=== PATIENT | male | born 1990 ===

== ENCOUNTER 2023-02-18 13:30 | Outpatient (AMB) | payer MEDICAID, SELFPAY ==
--- NOTE | 2023-02-18 13:32 | A.OFFVIS_ITS ---
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 Addison. He has a past medical history of chronic low back pain, depression, and GERD He presents to the office today for consultation of infertility. He reports over the last 2 years he has been attempting to have a child with his partner however has not been able to. He reports his has had infertility workup and noted to have increased FSH and is following up with a reproductive medicine doctor for this issue. He reports having had a left sided orchiectomy many years ago. However, it is unclear exactly why. He reports having had a orchiopexy for a undescended testicle at a young age however than discusses being told his testicle was too small and he was at high risk for testicular cancer therefore it was removed. He reports having this removed many years ago in [facility]. He discusses having followed up with a provider for this exact issue many years ago at which time recommendations were made for patient to take motility max by mouth however he reports having had no benefit with this medication and therefore he is here for consultation. He otherwise denies any bothersome urinary issues or concerns. He reports to be happy with current voiding parameters. Discussed at length potential causes for infertility. Discussed further workup with labs, scrotal ultrasound, and semen analysis. All questions were answered. [facility] Medical History (Updated 02/18/23 @ 14:08 by DILAN Hanson) Immune to varicella Chronic low back pain Dry skin Right testicular pain Current mild episode of major depressive disorder without prior episode GERD (gastroesophageal reflux disease) Surgical History (Updated 02/18/23 @ 14:03 by Esha Crenshaw) History of orchiectomy History of left inguinal hernia repair Review of Systems Eyes Reports no additional complaints ENT Reports no additional complaints Card Reports no additional complaints Resp Reports no additional complaints GI Reports as per HPI Reports as per HPI Musc Reports as per HPI Neuro Reports no additional complaints Psych Reports as per HPI Vincent/Lymph Reports no additional complaints Aller/Immun Reports no additional complaints Physical Exam Const General: cooperative, healthy appearing, comfortable, no acute distress, well developed, alert and awake Orientation/consciousness: patient oriented x3 Limitations: no limitations HEENT Head: Yes normal to inspection, Yes normocephalic and Yes atraumatic Ears: hearing grossly normal bilaterally Eyes General: appearance normal, both eyes and all related structures Neck Neck: Yes normal visual inspection and Yes trachea midline Chest Chest palpation & inspection: normal inspection of the chest Resp Effort & Inspection: normal respiratory effort and able to speak in complete sentences Cardio Rate: regular rate GI Inspection: Yes normal to inspection General: Yes no CVA tenderness Back/Spine/Pelvis Back: no CVA tenderness Skin General skin exam: no rashes or lesions noted Neuro General: patient oriented x3 Extrem General: Yes normal to inspection Psych Appearance: grossly normal and well kempt Mental Status: mental status grossly normal Speech and movement: Normal speech and movement present and Clear speech present Affect: normal affect Attitude: cooperative Thought process: Normal thought process present Thought content: Normal thought content present Insight: Fair insight present (Psych) Judgement: Fair judgement present (Psych) Results AMB Urinalysis, Automated UA Leukoctes 0 Diony/uL Last Edit by [employer] on 02/18/23 13:51 UA Nitrite Negative Last Edit by [employer] on 02/18/23 13:51 UA Urobilinogen 0.2 mg/dL Last Edit by [employer] on 02/18/23 13:51 UA Protein 15 mg/dL Last Edit by [employer] on 02/18/23 13:51 UA pH 6.0 Last Edit by [employer] on 02/18/23 13:51 UA Blood 0 Clint/uL Last Edit by [employer] F[employer] on 02/18/23 13:51 UA Specific [place]an 1.020 Last Edit by [employer] F[employer] on 02/18/23 13:51 UA Ketone Negative Last Edit by [employer] on 02/18/23 13:51 UA Bilirubin 0 mg/dL Last Edit by [employer] on 02/18/23 13:51 UA Glucose 0 mg/dL Last Edit by Esha Crenshaw on 02/18/23 13:51 Results Reviewed Results Reviewed: Laboratory Last Values Urine pH (Auto) 6.0 02/18/23 13:50 Specific Mac[place]arlan (Auto) 1.020 02/18/23 13:50 Urine Protein (Auto) 15 mg/dL 02/18/23 13:50 Glucose (UA)(Auto) 0 mg/dL 02/18/23 13:50 Urine Ketones (Auto) Negative 02/18/23 13:50 Urine Blood (Auto) 0 Clint/uL 02/18/23 13:50 Urine Nitrite (Auto) Negative 02/18/23 13:50 Urine Bilirubin (Auto) 0 mg/dL 02/18/23 13:50 Urine Urobilinogen (Auto) 0.2 mg/dL 02/18/23 13:50 Leukocyte Esterase (Auto) 0 Diony/uL 02/18/23 13:50 Assessment & Plan Assessment & Plan (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 Will obtain testosterone free and total, FSH, LH, prolactin, and estradiol for further assessment evaluation; discussed obtaining labs 2 hours upon wakening Start pentoxifylline and vitamin-E as discussed and prescribed. Discussed at length potential causes for infertility as well as further infertility workup Patient denies any bothersome urinary issues. He is happy with current voiding parameters. Will obtain scrotal ultrasound for further assessment evaluation. Discussed obtaining semen analysis through [facility] will await call back to schedule. Follow-up with Dr. Dupont in 6-8 weeks with imaging, labs, and semen analysis to be completed prior; or sooner with any issues, concerns, and or questions. 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 All questions were answered. Physical exam, labs, and imaging were discussed and reviewed in detail. As well as risks, benefits, and discussion of treatment choices. No major barriers to understanding were identified. The patient express ed understanding and agreement with the above treatment plan. The patient was made aware they should contact our office by phone for worsening of their current condition, the appearance of new symptoms, or with any questions or concerns. Compliance is encouraged with any medications and follow up testing that is ordered. It is a privilege to be allowed the opportunity to participate in? your urological care.? Again, if you have any questions or concerns If you have any questions or concerns please do not hesitate to contact me. The office is [phone]. This note is constructed using voice recognition software. While every effort has been made to ensure accuracy clinical data associate errors may have been included. 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
== END 2023-02-18 14:02 | disposition home or self-care (01) ==
PROVIDERS: PCP Nurse Practitioner; Visit Provider Nurse Practitioner Family
DX: Q55.0 Absence and aplasia of testis (principal); N46.11 Organic oligospermia; Z13.9 Encounter for screening, unspecified
CPT/HCPCS: 99204

== ENCOUNTER → 2023-02-18 13:30 | Outpatient (BNVA) | payer MEDICAID, SELFPAY | PROVIDERS: PCP Nurse Practitioner; Visit Provider Nurse Practitioner Family | DX: Q55.0 Absence and aplasia of testis (principal); N46.11 Organic oligospermia | CPT/HCPCS: 81003; 99212 ==

== ENCOUNTER 2023-02-20 09:56 | Outpatient (REF) | payer MEDICAID, SELFPAY ==
[2023-02-22 01:09] LABS: Follicle Stimulating Hormone 11.8 mIU/mL (1.4-12.8); Lutenizing Hormone 7.4 mIU/mL (1.5-9.3); Prolactin 6.6 ng/mL (2.0-18.0)
[2023-02-25 16:59] LABS: Testosterone, Total 368 ng/dL (250-1100)
[2023-03-08 15:10] LABS: Estradiol Ultra Sensitive 23
== END 2023-02-20 09:57 | disposition home or self-care (01) ==
LOC: HO.LAB 09:56
PROVIDERS: Visit Provider Nurse Practitioner Family
DX: N46.11 Organic oligospermia (principal)
CPT/HCPCS: 36415; 82670; 83001; 83002; 84146; 84402; 84403

== ENCOUNTER 2023-03-07 14:38 | Outpatient (REF) | payer MEDICAID, SELFPAY ==
--- NOTE | ~2023-03-07 | US_ITS ---
EXAMINATION: US SCROTUM CLINICAL INFORMATION: Organic oligospermia. Status post left orchiectomy many years ago, history of undescended testicle, status post orchiopexy. COMPARISON: None available. TECHNIQUE: A sonogram of the right glory-scrotum was performed assessing minor-scale appearance and color Doppler flow. Spectral Doppler analysis of the arterial and venous flow were performed in the right testes. FINDINGS: RIGHT: Right testicle measures 3.9 x 2.0 x 2.9 cm, volume 11.5 mL. No focal testicular parenchymal lesions are visualized. Spectral Doppler analysis of the arterial and venous flow is normal in the right testis. Right epididymal head is normal in size. No right hydrocele or varicocele is seen. Right epididymal Doppler flow is normal. LEFT: Surgically absent. US/US scrotum IMPRESSION: 1. Status post left orchiectomy. 2. Normal right testicle and epididymis.
== END 2023-03-07 14:39 | disposition home or self-care (01) ==
LOC: HO.US 14:38
PROVIDERS: PCP Nurse Practitioner; Visit Provider Nurse Practitioner Family
DX: N46.11 Organic oligospermia (principal); Q55.0 Absence and aplasia of testis
CPT/HCPCS: 76870

== ENCOUNTER 2023-04-16 14:07 | Outpatient (AMB) | payer MEDICAID, SELFPAY ==
--- NOTE | 2023-04-16 14:41 | A.OFFVIS_ITS ---
Intake Intake Visit Reasons: Labs/US(Set)Confirmed Intake Note: Patient is present for LABS/Semen analysis Allergies No Known Allergies Allergy (Verified 02/18/23 14:49) Medication List - Last Reconciled 04/16/23 by Jose Dupont MD pentoxifylline ER 400 mg PO BID 90 days vitamin E (dl, acetate) 450 mg PO DAILY 90 days HPI HPI Comments History of Present Illness Details Young is a pleasant [place] male. He is a patient of Dr. Addison. He is seen for the following urologic conditions - male infertility [place] refugee by way of [facility] - orchidopexy as child Fertility evaluation - partner currently undergoing evaluation Laboratory testing - T 400, FT 78, LH 7.4 Imaging - Scrotal US - right testicle normal Office Semen Analysis - adequate volume and movement on gross examination with HPF examination [facility] Medical History (Updated 02/18/23 @ 14:08 by FRANCESCA HansonP-) Immune to varicella Chronic low back pain Dry skin Right testicular pain Current mild episode of major depressive disorder without prior episode GERD (gastroesophageal reflux disease) Surgical History (Updated 02/18/23 @ 14:03 by Esha Crenshaw) History of orchiectomy History of left inguinal hernia repair Review of Systems Const Denies chills and Denies fever(s) Card Reports no additional complaints and Denies syncope Resp Denies cough GI Denies abdominal pain and Denies heartburn Reports as per HPI and Denies change in libido Neuro Denies syncope Psych Denies change in libido Endo Denies change in libido Physical Exam Const General: cooperative, healthy appearing, comfortable and no acute distress Orientation/consciousness: patient oriented x3 HEENT Face and sinus: Yes normal facial exam Mouth: moist mucous membranes Neck Neck: Yes normal visual inspection, Yes full ROM and Yes trachea midline Chest Chest palpation & inspection: normal inspection of the chest Resp Effort & Inspection: normal respiratory effort, able to speak in complete sentences and no respiratory distress GI Inspection: Yes normal to inspection Back/Spine/Pelvis Cervical Spine: normal cervical lordosis Thoracic/Lumbar Spine: thoracic and lumbar spine normal to inspection Skin General skin exam: no rashes or lesions noted Neuro General: patient oriented x3, gait normal, tone normal and moves all extremities Extrem General: Yes normal to inspection and Yes capillary refill normal Assessment & Plan Assessment & Plan (1) 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 follow-up Medications: Refilled pentoxifylline ER administer with meals 400 mg PO BID 90 days 180 tabs 1RF vitamin E (dl, acetate) 450 mg PO DAILY 90 days 90 caps 1RF N48.6 - Induration penis plastica Patient Instructions: Imaging studies, laboratory and physical exam results were discussed and reviewed in detail. No major barriers to patient understanding were identified. An opportunity to ask questions regarding the treatment plan was provided. All questions were answered. The patient expressed understanding and agreement with the above treatment plan. The patient is aware they should contact our office by phone for worsening of their current condition or the appearance of new urologic symptoms. Compliance is encouraged with any medications and followup testing that is ordered. It is a privilege to participate in the urologic care of your patient. If you have any questions or concerns regarding treatment for the above conditions, or other urologic issues, please do not hesitate to contact me. The office telephone contact is [phone]. This note is constructed using voice recognition software. While every effort landin s been made to ensure accuracy senior fire protection engineer errors may have been included. 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
== END 2023-04-16 15:11 | disposition home or self-care (01) ==
PROVIDERS: PCP Nurse Practitioner; Visit Provider Urology
DX: N46.11 Organic oligospermia (principal); Q55.0 Absence and aplasia of testis
CPT/HCPCS: 99213

== ENCOUNTER → 2023-04-16 14:07 | Outpatient (BNVA) | payer MEDICAID, SELFPAY | PROVIDERS: PCP Nurse Practitioner; Visit Provider Urology | DX: N46.11 Organic oligospermia (principal); Q55.0 Absence and aplasia of testis | CPT/HCPCS: 99212 ==

== ENCOUNTER 2023-11-19 13:44 | Outpatient (AMB) | payer MEDICAID, SELFPAY ==
--- NOTE | 2023-11-19 13:47 | A.OFFVIS_ITS ---
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 He is a patient of Dr. Addison. He is seen for the following urologic conditions - male infertility is back in [place] We will complete full infertility test Initial test in office had shown adequate sperm volume and gross movement evaluation [employer] [place] test will quantify sperm levels [place] refugee by way of [facility] - orchidopexy as child Fertility evaluation - partner currently undergoing evaluation Laboratory testing - T 400, FT 78, LH 7.4 Imaging - Scrotal US - right testicle normal [facility] Medical History Immune to varicella Chronic low back pain Dry skin Right testicular pain Current mild episode of major depressive disorder without prior episode GERD (gastroesophageal reflux disease) Surgical History History of orchiectomy History of left inguinal hernia repair Review of Systems Const Denies chills and Denies fever(s) Card Reports no additional complaints and Denies syncope Resp Denies cough GI Denies abdominal pain and Denies heartburn Reports as per HPI and Denies change in libido Neuro Denies syncope Psych Denies change in libido Endo Denies change in libido Physical Exam Const General: cooperative, healthy appearing, comfortable and no acute distress Orientation/consciousness: patient oriented x3 HEENT Face and sinus: Yes normal facial exam Mouth: moist mucous membranes Neck Neck: Yes normal visual inspection, Yes full ROM and Yes trachea midline Chest Chest palpation & inspection: normal inspection of the chest Resp Effort & Inspection: normal respiratory effort, able to speak in complete sentences and no respiratory distress GI Inspection: Yes normal to inspection Back/Spine/Pelvis Cervical Spine: normal cervical lordosis Thoracic/Lumbar Spine: thoracic and lumbar spine normal to inspection Skin General skin exam: no rashes or lesions noted Neuro General: patient oriented x3, gait normal, tone normal and moves all extremities Extrem General: Yes normal to inspection and Yes capillary refill normal Assessment & Plan Assessment & Plan (1) 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 No major barriers to patient understanding were identified. An opportunity to ask questions regarding the treatment plan was provided. All questions were answered. The patient expressed understanding and agreement with the above treatment plan. The patient is aware they should contact our office by phone for worsening of their current condition or the appearance of new urologic symptoms. Compliance is encouraged with any medications and followup testing that is ordered. It is a privilege to participate in the urologic care of your patient. If you have any questions or concerns regarding treatment for the above conditions, or other urologic issues, please do not hesitate to contact me. The office telephone contact is [phone]. This note is constructed using voice recognition software. While every effort has been made to ensure accuracy research physician errors may have been included. Yours sincerely, Dr Jose Dupont MD, 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
== END 2023-11-19 14:45 | disposition home or self-care (01) ==
PROVIDERS: PCP Nurse Practitioner; Visit Provider Urology
DX: N46.11 Organic oligospermia (principal)
CPT/HCPCS: 99213

== ENCOUNTER → 2023-11-19 13:44 | Outpatient (BNVA) | payer MEDICAID, SELFPAY | PROVIDERS: PCP Nurse Practitioner; Visit Provider Urology | DX: N46.11 Organic oligospermia (principal) | CPT/HCPCS: 99212 ==